=== PATIENT | female | born 1995 | race Caucasian/White ===

== ENCOUNTER → 2018-02-04 | Day surgery (SDC) | payer OTHER ==
[2018-01-31 09:56] VITALS: BMI 22.4
[~2018-02-04] MED LIST: LACTATED RINGERS 1,000 ML IV SCH; LIDOCAINE 1% INJ 10MG/ML (20 ML MDV) ONE; ONDANSETRON 4 MG/2 ML VIAL ONE; PROPOFOL 10 MG/ML 20 ML VIAL IV ONE; fentaNYL (PF) 50 MCG/ML 2 ML AMP ONE
[2018-02-04 08:51] VITALS: RESP 16; TEMP 97.7
--- NOTE | 2018-02-04 09:27 | P.GSHP ---
History of Present Illness H&P Date: 02/04/18 Chief Complaint: GERD, nausea This a 22-year-old female referred from Dr. Rojas. Patient is today for EGD. She's had issues with GERD and nausea. Past Medical History Additional Past Medical History / Comment(s): frequent nausea, states "cyst on face" currently History of Any Multi-Drug Resistant Organisms: None Reported Additional Past Surgical History / Comment(s): jaw sx to remove cyst Past Anesthesia/Blood Transfusion Reactions: Postoperative Nausea & Vomiting ( PONV) Smoking Status: Never smoker - Past Family History Mother Family Medical History: No Reported History Medications and Allergies Home Medications Medication Instructions Recorded Confirmed Type Control 1 tab PO DAILY 01/31/18 02/04/18 History Buspirone 1 tab PO DAILY PRN 01/31/18 02/04/18 History Allergies Allergy/AdvReac Type Severity Reaction Status Date / Time amoxicillin Allergy Rash/Hives Verified 01/31/18 09:54 Surgical - Exam Vital Signs Temp Pulse Resp BP Pulse Ox 97.7 F 82 16 122/82 98 02/04/18 08:50 02/04/18 08:50 02/04/18 08:50 02/04/18 08:50 02/04/18 08:50 - General well developed, no distress - Eyes PERRL - ENT normal pinna - Neck no masses - Respiratory normal expansion - Cardiovascular Rhythm: regular - Abdomen Abdomen: soft, non tender Assessment and Plan Assessment: GERD, nausea. We'll perform EGD.
[2018-02-04 09:40] VITALS: PULSE 72
[2018-02-04 09:53] VITALS: BP 101/64
--- NOTE | 2018-02-04 12:32 | NM ---
Nuclear medicine hepatobiliary scan. HISTORY: Pain. DOSAGE: The patient received 1.25 micrograms of CCK and 5.2 mCi of Technetium 99m Choletec. FINDINGS: There is normal hepatic extraction. The gallbladder is seen by 30 minutes. There is bilia ry to bowel clearance by 15 minutes. Ejection fraction is 72%. IMPRESSION: 1. Normal hepatobiliary exam
--- NOTE | 2018-02-12 08:22 | P.OP ---
Date of Procedure: 02/04/15 Preoperative Diagnosis: GERD Postoperative Diagnosis: Antral gastritis Procedure(s) Performed: EGD Anesthesia: MAC Surgeon: Roby Angel Pathology: other (Antrum) Condition: stable Disposition: PACU Description of Procedure: The patient's placed on the endoscopy table in the lateral position. She received IV sedation. The gastric was placed oropharynx and passed in the esophagus and into the stomach. Scope was then placed through the pylorus. The first second portion duodenum appeared normal. Scope was then brought back the antrum and this was mildly inflamed. A biopsies performed. Scope was then retroflexed and the remainder of the stomach appeared normal. There is no significant hiatal hernia. The GE junction was at 40 cm. The distal esophagus appeared normal. The proximal esophagus appeared normal. Scope was withdrawn for patient.
== END | disposition home or self-care (01) ==
LOC: ORWHC2ENDO 08:28
PROVIDERS: ATTEND Surgery
DX: K29.50 Unspecified chronic gastritis without bleeding (principal); K21.9 Gastro-esophageal reflux disease without esophagitis; F39 Unspecified mood [affective] disorder; Z79.3 Long term (current) use of hormonal contraceptives; Z88.0 Allergy status to penicillin
CPT/HCPCS: 81025; 88305; 78227; 43239; A9537; J2405; J2805; J2001; J3010; J2704

== ENCOUNTER → 2018-02-20 | Outpatient (CLI) | payer OTHER ==
--- NOTE | 2018-02-20 11:29 | US ---
EXAMINATION TYPE: US gallbladder DATE OF EXAM: 02/20/2018 COMPARISON: nuclear medicine HIDA scan 2018 CLINICAL HISTORY: K81.1 Chronic cholecystitis. EXAM MEASUREMENTS: Liver Length: 13.8 cm Gallbladder Wall: 0.1 cm CBD: 0.2 cm Right Kidney: 11.1 x 4.2 x 4.8 cm Pancreas: wnl Liver: wnl Gallbladder: wnl Evidence for sonographic Mcintosh's sign: No CBD: wnl Right Kidney: wnl IMPRESSION: No shadowing mobile gallstones or ultrasound evidence for acute cholecystitis.
== END | disposition home or self-care (01) ==
LOC: RADUSWWP 07:37
PROVIDERS: ATTEND Surgery
DX: K81.1 Chronic cholecystitis (principal)
CPT/HCPCS: 76705

== ENCOUNTER 2022-04-18 12:23 | Inpatient (IN) | payer MEDICAID, OTHER ==
[2022-04-18 12:41] VITALS: RESP 16
--- NOTE | 2022-04-18 12:59 | ED ---
Psych HPI - General Chief Complaint: Psychiatric Symptoms Stated Complaint: Mental Health Time Seen by Provider: 04/18/22 12:43 Source: patient, RN notes reviewed Mode of arrival: ambulatory - History of Present Illness Initial Comments: Patient is a pleasant 26-year-old female presents to the emergency room with complaints of worsening depression and suicidal thoughts. She has borderline personality disorder and his on multiple medications and following with psychiatry. She was going to see her psychiatrist but symptoms worsened and she became intent on following through with a suicidal plan of obtaining a gun to shoot herself and when she was unable to do so she was planning on taking all of her medications. Prior to proceeding with her plan she contacted her friend who quickly intervened with patient and kept her overnight. Her and other friends discussed her symptoms and advised that the need for psychiatric admission was prudent. Consequently she presented to the emergency room today for further evaluation. She is tearful upon discussion of her current mood and suicidal thoughts. She denies any homicidal thoughts hallucinations or delusions. With the exception of her mental health diagnosis as she has no other significant past medical history. Overall she is feeling physically well and denies any medical complaints or concerns including any fevers, chills, shortness of breath, chest pain, abdominal pain, nausea or vomiting. - Related Data Home Medications Medication Instructions Recorded Confirmed Dextroamphetamine Sulfate [Zenzedi] 10 mg PO BID PRN 04/18/22 04/18/22 Gabapentin 600 mg PO HS 04/18/22 04/18/22 QUEtiapine [SEROquel] 50 mg PO HS 04/18/22 04/18/22 lamoTRIgine [LaMICtal] 50 mg PO DAILY 04/18/22 04/18/22 Allergies Allergy/AdvReac Type Severity Reaction Status Date / Time amoxicillin Allergy Rash/Hives Verified 04/18/22 13:20 Review of Systems ROS Statement: Those systems with pertinent positive or pertinent negative responses have been documented in the HPI. ROS Other: All systems not noted in ROS Statement are negative. Past Medical History Additional Past Medical History / Comment(s): frequent nausea, states "cyst on face" currently History of Any Multi-Drug Resistant Organisms: None Reported Additional Past Surgical History / Comment(s): jaw sx to remove cyst Past Anesthesia/Blood Transfusion Reactions: Postoperative Nausea & Vomiting (PONV) Past Psychological History: Anxiety, Depression Past Alcohol Use History: None Reported Past Drug Use History: Marijuana - Past Family History Mother Family Medical History: No Reported History General Exam Limitations: no limitations General appearance: alert, in no apparent distress Head exam: Present: atraumatic, normocephalic, normal inspection Eye exam: Present: normal appearance, PERRL, EOMI. Absent: scleral icterus, conjunctival injection, periorbital swelling ENT exam: Present: normal exam, mucous membranes moist Neck exam: Present: normal inspection. Absent: tenderness, meningismus, lymphadenopathy Respiratory exam: Present: normal lung sounds bilaterally. Absent: respiratory distress, wheezes, rales, rhonchi, stridor Cardiovascular Exam: Present: regular rate, normal rhythm, normal heart sounds. Absent: systolic murmur, diastolic murmur, rubs, gallop, clicks GI/Abdominal exam: Present: soft, normal bowel sounds. Absent: distended, tenderness, guarding, rebound, rigid Rectal exam: Present: deferred Extremities exam: Present: normal inspection, full ROM, normal capillary refill. Absent: tenderness, pedal edema, joint swelling, calf tenderness Back exam: Present: normal inspection Neurological exam: Present: alert, oriented X3, CN II-XII intact Psychiatric exam: Present: depressed, suicidal ideation Skin exam: Present: warm, dry, intact, normal color. Absent: rash Course Vital Signs 04/18/22 12:39 Temperature 98.4 F Pulse Rate 78 Respiratory 16 Rate Blood Pressure 110/78 O2 Sat by Pulse 100 Oximetry Medical Decision Making - Medical Decision Making No acute medical complaints. No need for diagnostic imaging or laboratory stud ies. BAYLEE 0.000. Patient is medically cleared for psychiatric evaluation. Patient is at risk for self-harm and will likely require admission into the hospital. Procedures regarding suicidal watch and EPS evaluation discussed with patient. She is currently resting comfortably and calmly in her bed. EPS determined patient meets criteria for inpatient psychiatric admission. Will discharge patient to inpatient psych. Case discussed with Dr. Tony. - Lab Data Lab Results 04/18/22 04/18/22 Range/Units 13:24 15:26 Urine Opiates Screen Not Detected (NotDetected) Ur Oxycodone Screen Not Detected (NotDetected) Urine Methadone Screen Not Detected (NotDetected) Ur Propoxyphene Screen Not Detected (NotDetected) Ur Barbiturates Screen Not Detected (NotDetected) U Tricyclic Antidepress Detected H (NotDetected) Ur Phencyclidine Scrn Not Detected (NotDetected) Ur Amphetamines Screen Not Detected (NotDetected) U Methamphetamines Scrn Not Detected (NotDetected) U Benzodiazepines Scrn Not Detected (NotDetected) Urine Cocaine Screen Not Detected (NotDetected) U Marijuana (THC) Screen Detected H (NotDetected) Coronavirus (PCR) Not Detected (Not Detectd) Disposition Clinical Impression: Depression, Suicidal ideation Disposition: TRANSFER TO PSYCH HOSP/UNIT Condition: Stable Is patient prescribed a controlled substance at d/c from ED?: No Time of Disposition: 17:20
[2022-04-18 13:52] LABS: Amphetamine Screen,Urine Not Detected (NotDetected); Barbiturate Screen,Urine Not Detected (NotDetected); Benzodiazepines Screen,Urine Not Detected (NotDetected); Cocaine Screen,Urine Not Detected (NotDetected); Methadone Screen, Urine Not Detected (NotDetected); Opiate Screen,Urine Not Detected (NotDetected); Oxycodone Screen, Urine Not Detected (NotDetected); Phencyclidine Screen,Urine Not Detected (NotDetected); Tricyclic Antidepressant,Urine Detected (NotDetected); Urn Cannabinoid Scrn Detected (NotDetected)
[2022-04-18] MEDS ORDERED: MAGNESIUM HYDROXIDE 2,400 MG/10 ML CUP PO PRN (16:32)
[2022-04-18] MEDS ORDERED: ACETAMINOPHEN TAB 325 MG TAB PO PRN (16:32)
[2022-04-18] MEDS ORDERED: hydrOXYzine HCL 50 MG/ML 1 ML VIAL IM PRN (16:32)
[2022-04-18] MEDS ORDERED: HALOPERIDOL LACTATE 5 MG/ML 1 ML VIAL IM PRN (16:32)
[2022-04-18] MEDS ORDERED: hydrOXYzine pamoate 25 MG CAP PO PRN (16:32)
[2022-04-18] MEDS ORDERED: MAG HYDROX/AL HYDROX/SIMETH 30 ML CUP PO PRN (16:32)
[2022-04-18 17:57] LABS: Appearance,Urine Clear (Clear); Bilirubin,Urine Negative (Negative); Blood,Urine Negative (Negative); Color,Urine Yellow; Glucose,Urine (UA) Negative (Negative); Ketones,Urine Negative (Negative); Leukocyte Esterase,Urine Negative (Negative); Nitrite,Urine Negative (Negative); Protein,Urine Negative (Negative); Urobilinogen,Urine <2.0 mg/dL (<2.0)
[2022-04-18] MEDS: GABAPENTIN 300 MG CAP PO SCH (20:36)
[2022-04-18] MEDS ORDERED: QUEtiapine 50 MG TAB PO SCH (21:00)
[2022-04-19 08:03] LABS: Basophils # (A) 0.1 k/uL (0-0.2); Basophils % (A) 1 %; Eosinophils # (A) 0.1 k/uL (0-0.7); Eosinophils % (A) 1 %; HCT 41.3 % (34.0-46.0); HGB 13.4 gm/dL (11.4-16.0); Lymphocytes # (A) 2.1 k/uL (1.0-4.8); Lymphocytes % (A) 37 %; MCH 29.6 pg (25.0-35.0); MCHC 32.5 g/dL (31.0-37.0); MCV 91.1 fL (80.0-100.0); Mean Platelet Volume 8.1; Monocytes # (A) 0.5 k/uL (0-1.0); Monocytes % (A) 8 %; Neutrophils # (A) 2.9 k/uL (1.3-7.7); Neutrophils % (A) 50 %; Platelet Count 310 k/uL (150-450); RBC 4.54 m/uL (3.80-5.40); RDW 12.2 % (11.5-15.5); WBC 5.7 k/uL (3.8-10.6)
[2022-04-19 08:21] LABS: ALT 9 U/L (4-34); AST 20 U/L (14-36); African American GFR (CKD) >90 (>60 ml/min/1.73 sqM); Albumin 4.5 g/dL (3.5-5.0); Alkaline Phosphatase 64 U/L (38-126); Anion Gap 7 mmol/L; Bilirubin, Delta 0.2 mg/dL (0.0-0.2); Bilirubin,Unconjugated 0.8 mg/dL (0.0-1.1); Blood Urea Nitrogen 10 mg/dL (7-17); Calcium 9.8 mg/dL (8.4-10.2); Carbon Dioxide 29 mmol/L (22-30); Chloride 104 mmol/L (98-107); Glucose 98 mg/dL (74-99); Non-African American GFR(CKD) >90 (>60 ml/min/1.73 sqM); Potassium 4.4 mmol/L (3.5-5.1); Sodium 140 mmol/L (137-145); Total Protein 7.5 g/dL (6.3-8.2)
[2022-04-19] MEDS: GABAPENTIN 300 MG CAP PO SCH ×2 (08:46→20:24)
[2022-04-19] MEDS: lamoTRIgine 25 MG TAB PO SCH (08:46)
[2022-04-19] MEDS ORDERED: NICOTINE 14MG/24HR PATCH TRANSDERM SCH (09:00)
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
[2022-04-19 17:56] LABS: Chol/HDL Ratio 4.19 Ratio; LDL Cholesterol,Calculated 109.6 mg/dL (0.0-131.0)
[2022-04-19] MEDS: MIRTAZAPINE 15 MG TAB PO SCH (20:24)
[2022-04-19] MEDS: QUEtiapine 100 MG TAB PO SCH (20:24)
[2022-04-20] MEDS: GABAPENTIN 300 MG CAP PO SCH ×2 (08:37→21:45)
[2022-04-20] MEDS: lamoTRIgine 25 MG TAB PO SCH (08:37)
--- NOTE | 2022-04-20 08:51 | P.CONS ---
History of Present Illness - Reason for Consult Consult date: 04/19/22 medical eval - Chief Complaint suicidal - History of Present Illness Ruth Stuart is a 26 yo F with PMH of depression, borderline personality disorder who presented to the ED with suicidal ideation. She complains of numerous life stressors and states her depression has recently worsened so came in for stabilization. She denies any physical symptoms today, no headache, vision change, vertigo, numbness, tingling, abdominal pain, nausea or vomiting. On presentation vitals stable and labs unremarkable. Review of Systems All systems: negative Constitutional: Denies chills, Denies fever Eyes: denies blurred vision, denies pain Ears, nose, mouth and throat: Denies headache, Denies sore throat Cardiovascular: Denies chest pain, Denies shortness of breath Respiratory: Denies cough Gastrointestinal: Denies abdominal pain, Denies diarrhea, Denies nausea, Denies vomiting Genitourinary: Denies dysuria, Denies hematuria Musculoskeletal: Denies myalgias Integumentary: Denies pruritus, Denies rash Neurological: Denies numbness, Denies weakness Psychiatric: Reports as per HPI, Reports anxiety, Reports suicidal ideation, Denies depression Endocrine: Denies fatigue, Denies weight change Past Medical History Additional Past Medical History / Comment(s): frequent nausea, states "cyst on face" currently, has Hydradenitis on both armpits (rash). History of Any Multi-Drug Resistant Organisms: None Reported Additional Past Surgical History / Comment(s): jaw sx to remove cyst Past Anesthesia/Blood Transfusion Reactions: No Reported Reaction, Postoperative Nausea & Vomiting (PONV) Smoking Status: Never smoker - Past Family History Mother Family Medical History: No Reported History Medications and Allergies Home Medications Medication Instructions Recorded Confirmed Type Dextroamphetamine Sulfate [Zenzedi] 10 mg PO BID PRN 04/18/22 04/18/22 History Gabapentin 600 mg PO HS 04/18/22 04/18/22 History QUEtiapine [SEROquel] 50 mg PO HS 04/18/22 04/18/22 History lamoTRIgine [LaMICtal] 50 mg PO DAILY 04/18/22 04/18/22 History Allergies Allergy/AdvReac Type Severity Reaction Status Date / Time amoxicillin Allergy Rash/Hives Verified 04/18/22 13:20 Physical Exam Vitals: Vital Signs Temp Pulse Resp BP Pulse Ox 07/08/22 07:10 97.6 F 63 16 76/46 98 General: well developed, well nourished female in NAD HEENT: normocephalic, atraumatic, mucus membranes moist Neck: supple, no thyromegaly or JVD CV: RRR, no murmur Lungs: normal effort, clear throughout Abd: soft, nontender, non distended Neuro: alert and oriented x3, no focal deficit Skin: warm and dry Results CBC & Chem 7: 04/19/22 07:49 04/19/22 07:49 Assessment and Plan Plan: 1. Suicidal ideation. Management per psychiatry. She is medically stable and no intervention from our standpoint
--- NOTE | 2022-04-20 18:41 | P.PN ---
Progress Note - Text Progress Note Date: 04/20/22 Interval History: Patient was seen wandering the hallways and was directable and agreeable to speak with music writer in the office. She reports she got "tremendous news", she talked to her friend who told her President Kumar reversed the order on [employer]. She reports her mood is "content". At this time patient denies any suicidal or homicidal ideations, intent or plan. Patient denies any auditory or visual hallucinations, and denies any paranoia or delusions. Patient has been compliant with meds and denies medication side effects except for feeling a bit nauseous after getting out of bed after taking her nighttime medications last night. Mental Status Exam: General Appearance: Patient appears to be stated age, hair in sections in pink and brown. Has tattoos on her legs. Orientation: She is alert and oriented to person, place, time and situation. Behavior: Patient is calmly seated without any agitated behavior. Speech: Patient's speech is fluent and nonpressured. Mood/Affect: Mood is improving mildly, affect is congruent and constricted. Suicidality/Homicidality: Patient denies having any suicidal or homicidal ideation intent or plan. Perceptions: Patient denies any visual hallucinations and denies any auditory hallucinations. Though content: There is no evidence of any delusional thought content. Thought process: Thought process is linear and goal-directed. Memory and concentration: Grossly intact for the purposes of this session Judgment and insight: Improving mildly Assessment Major depressive disorder, recurrent, severe Generalized anxiety disorder Borderline personality disorder Cannabis use disorder Rule out PTSD Plan: -Patient is admitted under voluntary status to MHU for stabilization of psychiatric symptoms and safety. Patient signed adult voluntary form and medication consent and is placed in patient's chart. -Medications: Continue Seroquel 100 mg by mouth at bedtime for mood augmentation. Continue Remeron 15 mg by mouth at bedtime for depression/insomnia/nausea. Continue Lamictal 50 mg by mouth daily for mood stabilization. Continue Gabapentin 300 mg by mouth twice a day for off label use for anxiety. -Continue to monitor for side effects. -Haldol and Vistaril PRN for agitation/aggression. -Patient was counselled on substance abuse and desired to cut back on use. -SW on board for discharge planning. Encourage patient to participate in groups to work on coping skills.
[2022-04-20] MEDS: MIRTAZAPINE 15 MG TAB PO SCH (21:46)
[2022-04-20] MEDS: QUEtiapine 100 MG TAB PO SCH (21:46)
[2022-04-21] MEDS: lamoTRIgine 25 MG TAB PO SCH (08:42)
[2022-04-21] MEDS: GABAPENTIN 300 MG CAP PO SCH ×2 (08:42→21:37)
--- NOTE | 2022-04-21 12:11 | P.PN ---
Subjective Progress Note Date: 04/21/22 Principal diagnosis: Assessment Major depressive disorder, recurrent, severe Generalized anxiety disorder Borderline personality disorder Cannabis use disorder Rule out PTSD Patient was seen wandering the hallways and was directable and agreeable to speak with food writer in the office. Patient states that she feels positive now that she knows that she has a diagnoses of BPD and that she can get some help likely a DBT She reports her mood is "content". At this time patient denies any suicidal or homicidal ideations, intent or plan. But that at the time of admission she had plan to get a gun or take an overdose Patient denies any auditory or visual hallucinations, and denies any paranoia or delusions. Patient has been compliant with meds and denies medication side effects Mental Status Exam: General Appearance: Patient appears to be stated age, hair dyed in sections in pink and brown. Has tattoos on her legs. Orientation: She is alert and oriented to person, place, time and situation. Behavior: Patient is calmly seated without any agitated behavior. Speech: Patient's speech is fluent and nonpressured. Mood/Affect: Mood is improving mildly, affect is congruent and constricted. Suicidality/Homicidality: Patient denies having any suicidal or homicidal ideat ion intent or plan. Perceptions: Patient denies any visual hallucinations and denies any auditory hallucinations. Though content: There is no evidence of any delusional thought content. Thought process: Thought process is linear and goal-directed. Memory and concentration: Grossly intact for the purposes of this session Judgment and insight: Improving mildly Assessment Major depressive disorder, recurrent, severe Generalized anxiety disorder Borderline personality disorder Cannabis use disorder Rule out PTSD Plan: -Patient is admitted under voluntary status to MHU for stabilization of ps ychiatric symptoms and safety. Patient signed adult voluntary form and medication consent and is placed in patient's chart. -Medications: Continue Seroquel 100 mg by mouth at bedtime for mood augmentation. Continue Remeron 15 mg by mouth at bedtime for depression/insomnia/nausea. Continue Lamictal 50 mg by mouth daily for mood stabilization. Continue Gabapentin 300 mg by mouth twice a day for off label use for anxiety. -Continue to monitor for side effects. -Haldol and Vistaril PRN for agitation/aggression. -Patient was counselled on substance abuse and desired to cut back on use. -SW on board for discharge planning. Encourage patient to participate in groups to work on coping skills. Jin Robles M.D. 04/21/2022 Objective - Vital Signs Vital signs: Vital Signs Temp 97.2 F L 04/21/22 06:55 Pulse 69 04/21/22 06:55 Resp 16 04/20/22 07:10 BP 87/57 04/21/22 06:55 Pulse Ox 99 04/21/22 06:55 FiO2 - Labs CBC & Chem 7: 04/19/22 07:49 04/19/22 07:49
[2022-04-21] MEDS: MIRTAZAPINE 15 MG TAB PO SCH (21:37)
[2022-04-21] MEDS: QUEtiapine 100 MG TAB PO SCH (21:37)
[2022-04-22] MEDS: lamoTRIgine 25 MG TAB PO SCH (08:46)
[2022-04-22] MEDS: GABAPENTIN 300 MG CAP PO SCH ×2 (08:47→21:26)
--- NOTE | 2022-04-22 13:02 | P.PN ---
Subjective Progress Note Date: 04/22/22 Principal diagnosis: Assessment Major depressive disorder, recurrent, severe Generalized anxiety disorder Borderline personality disorder Cannabis use disorder Rule out PTSD Patient was seen wandering the hallways and was directable and agreeable to speak with specification writer in the office. Patient reports that she has started to feel better and much more positive At this time patient denies any suicidal or homicidal ideations, intent or plan. Patient denies any auditory or visual hallucinations, and denies any paranoia or delusions. Patient has been compliant with meds and denies medication side effects Mental Status Exam: General Appearance: Patient appears to be stated age, hair dyed in sections in pink and brown. Has tattoos on her legs. Orientation: She is alert and oriented to person, place, time and situation. Behavior: Patient is calmly seated without any agitated behavior. Speech: Patient's speech is fluent and nonpressured. Mood/Affect: Mood is improving mildly, affect is congruent and constricted. Suicidality/Homicidality: Patient denies having any suicidal or homicidal ideation intent or plan. Perceptions: Patient denies any visual hallucinations and denies any auditory hallucinations. Though content: There is no evidence of any delusional thought content. Thought process: Thought process is linear and goal-directed. Memory and concentration: Grossly intact for the purposes of this session Judgment and insight: Improving mildly Assessment Major depressive disorder, recurrent, severe Generalized anxiety disorder Borderline personality disorder Cannabis use disorder Rule out PTSD Plan: -Patient is admitted under voluntary status to MHU for stabilization of psychiatric symptoms and safety. Patient signed adult voluntary form and [facility] consent and is placed in patient's chart. -Medications: Continue Seroquel 100 mg by mouth at bedtime for mood augmentation. Continue Remeron 15 mg by mouth at bedtime for depression/insomnia/nausea. Continue Lamictal 50 mg by mouth daily for mood stabilization. Continue Gabapentin 300 mg by mouth twice a day for off label use for anxiety. -Continue to monitor for side effects. -Haldol and Vistaril PRN for agitation/aggression. -Patient was counselled on substance abuse and desired to cut back on use. -SW on board for discharge planning. Encourage patient to participate in groups to work on coping skills. iJn Robles M.D. 04/22/2022 Objective - Vital Signs Vital signs: Vital Signs Temp 97.7 F 04/22/22 06:44 Pulse 68 04/22/22 06:44 Resp 16 04/22/22 06:44 BP 98/54 04/22/22 06:44 Pulse Ox 99 04/22/22 06:44 FiO2 Intake & Output 04/21/22 04/22/22 04/22/22 18:59 06:59 18:59 Weight 66.5 kg - Labs CBC & Chem 7: 04/19/22 07:49 04/19/22 07:49
[2022-04-22] MEDS: QUEtiapine 100 MG TAB PO SCH (21:26)
[2022-04-22] MEDS: MIRTAZAPINE 15 MG TAB PO SCH (21:26)
[2022-04-23 06:46] VITALS: BP 90/55; PULSE 67; TEMP 97.9
[2022-04-23] MEDS: lamoTRIgine 25 MG TAB PO SCH (08:52)
[2022-04-23] MEDS: GABAPENTIN 300 MG CAP PO SCH (08:53)
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
== END 2022-04-23 12:41 | disposition home or self-care (01) | DRG 885 ==
LOC: EC 12:23 → 3MHU 16:31
PROVIDERS: ADMIT Psychiatry & Neurology Psychiatry; ATTEND Psychiatry & Neurology Psychiatry
DX: F33.2 Major depressive disorder, recurrent severe without psychotic features (principal); R45.851 Suicidal ideations; L73.2 Hidradenitis suppurativa; F12.10 Cannabis abuse, uncomplicated; R21 Rash and other nonspecific skin eruption; K58.9 Irritable bowel syndrome, unspecified; F41.1 Generalized anxiety disorder; F60.3 Borderline personality disorder; G47.00 Insomnia, unspecified; R11.0 Nausea; Z20.822 Contact with and (suspected) exposure to COVID-19; Z28.21 Immunization not carried out because of patient refusal; Z62.810 Personal history of physical and sexual abuse in childhood; Z79.899 Other long term (current) drug therapy; Z91.410 Personal history of adult physical and sexual abuse; Z91.52 Personal history of nonsuicidal self-harm
CPT/HCPCS: 80053; 80061; 80306; 81003; 81025; 82075; 82248; 83036; 84443; 85025; 87635; 99285